=== PATIENT | female | born 1940 | race Caucasian/White ===

== ENCOUNTER → 2017-11-15 | Emergency (ER) | payer OTHER ==
[~2017-11-15] VITALS: Ht 160 cm; Wt 77.1 kg
[~2017-11-15] MED LIST: ALTACE2.5 MG; CELEBREX100 MG PO; INTESTINEX680 M1; PROBIOTIC1 EAC1; PROTONIX20 MG; SALINE MIST45 ML NASAL
== END | disposition home or self-care (01) ==
LOC: ER 21:58
DX: H57.8 Other specified disorders of eye and adnexa (principal); R05 Cough; T65.891A Toxic effect of other specified substances, accidental (unintentional), initial encounter; Y92.59 Other trade areas as the place of occurrence of the external cause

== ENCOUNTER 2019-02-04 09:33 | Outpatient (CLI) | payer OTHER | END 2019-02-04 17:00 | disposition home or self-care (01) | LOC: TOM 09:33 | DX: R10.32 Left lower quadrant pain (principal) ==

== ENCOUNTER 2019-02-04 09:47 | Outpatient (CLI) | payer OTHER | END 2019-02-04 15:00 | disposition home or self-care (01) | LOC: LAB 09:47 | DX: N39.0 Urinary tract infection, site not specified (principal) ==

== ENCOUNTER 2019-02-26 09:15 | Day surgery (SDC) | payer OTHER | END 2019-02-26 14:30 | disposition home or self-care (01) | LOC: AMB-ENDOS 09:15 | DX: D12.2 Benign neoplasm of ascending colon (principal); D12.3 Benign neoplasm of transverse colon; D12.5 Benign neoplasm of sigmoid colon; K64.8 Other hemorrhoids ==

== ENCOUNTER 2020-04-14 05:52 | Day surgery (SDC) | payer OTHER | END 2020-04-14 10:20 | disposition home or self-care (01) | LOC: AMB-ENDOS 05:52 | PROVIDERS: ATTEND Colon & Rectal Surgery | DX: D12.3 Benign neoplasm of transverse colon (principal); D12.4 Benign neoplasm of descending colon; D12.5 Benign neoplasm of sigmoid colon; Z20.828 Contact with and (suspected) exposure to other viral communicable diseases; K64.8 Other hemorrhoids; Z12.11 Encounter for screening for malignant neoplasm of colon ==